=== PATIENT | male | born 1980 | race Caucasian/White ===

== ENCOUNTER 2017-03-23 11:16 | Emergency (ER) | payer BC, OTHER ==
[2017-03-23 11:38] VITALS: BP 124/84
--- NOTE | 2017-03-23 11:45 | EDM.PDOC ---
ED HPI GENERAL MEDICAL PROBLEM - General Chief Complaint: Eye Problems Stated Complaint: LOOSES SIGHT Time Seen by Provider: 03/23/17 11:44 - History of Present Illness INITIAL COMMENTS - FREE TEXT/NARRATIVE: 36-year-old male presents emergency room with vision changes. Patient had a seizure a couple of weeks ago after this he's noticed increased vision changes he has up to 1 episode today where he notices his vision get blurry on the periphery and then moving towards a central vision. This happens in both eyes it last no more than 30 seconds and then spontaneously resolves it might be associated with increased head pressure and he states at times lights seem a little brighter than they should. Patient had a similar episode couple years ago this was worked up but the cause of these was not determined. 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 - Related Data Allergies Allergy/AdvReac Type Severity Reaction Status Date / Time cephalexin monohydrate Allergy Cannot Verified 08/11/15 11:55 [From Keflex] Remember Cephalosporins Allergy Cannot Verified 08/11/15 11:55 Remember erythromycin base Allergy Cannot Verified 08/11/15 11:55 Remember Home Meds: Home Meds Divalproex Sodium [Depakote ER] 1,500 mg PO DAILY 08/11/15 [History] FLUoxetine [PROzac] 20 mg PO DAILY 08/11/15 [History] Past Medical History Neurological History: Reports: Seizure Psychiatric History: Reports: Anxiety, Depression - Past Surgical History Musculoskeletal Surgical History: Reports: Shoulder Surgery Other Musculoskeletal Surgeries/Procedures:: left x 2 Social & Family History - Tobacco Use Smoking Status *Q: Current Every Day Smoker Years of Tobacco use: 10 Packs/Tins Daily: 1 Used Tobacco, but Quit: No Second Hand Smoke Exposure: No - Caffeine Use Caffeine Use: Reports: Coffee - Recreational Drug Use Recreational Drug Use: No ED ROS GENERAL - Review of Systems Review Of Systems: See Below Constitutional: Reports: No Symptoms. Denies: Fever, Chills HEENT: Reports: Vision Change. Denies: Eye Pain Respiratory: Reports: No Symptoms Cardiovascular: Reports: No Symptoms GI/Abdominal: Reports: No Symptoms : Reports: No Symptoms Musculoskeletal: Reports: No Symptoms Skin: Reports: No Symptoms Neurological: Reports: Headache (Doesn't have headaches he notices some pressure especially when his eyes get blurry), Seizure (History of present illness). Denies: Confusion, Dizziness, Numbness, Syncope, Tremors, Trouble Speaking, Difficulty Walking, Weakness Psychiatric: Reports: No Symptoms ED EXAM GENERAL W FULL EYE - Physical Exam Exam: See Below Exam Limited By: No Limitations General Appearance: Alert, No Apparent Distress Eye Exam: Bilateral Eye: EOMI, Normal Inspection, PERRL Visual Acuity (R) 20/: 25 (He missed 2 on the 20/25 line) Visual Acuity (L) 20/: 25 (He missed 2 on the 20/25 line) Eyelids: Bilateral: Normal Appearance Conjunctiva & Sclera: Bilateral: Normal Appearance Cornea Exam: Bilateral: Normal Appearance Pupils: Normal Accommodation Ears: Normal External Exam, Normal Canal, Hearing Grossly Normal, Normal TMs, Other (Right tympanic membrane not visualized left is normal right not visualized because of cerumen) Nose: Normal Inspection, Normal Mucosa Throat/Mouth: Normal Inspection, Normal Lips, Normal Teeth, Normal Gums, Normal Oropharynx, Normal Voice, No Airway Compromise Head: Atraumatic, Normocephalic Neck: Normal Inspection, Supple, Non-Tender, Full Range of Motion Respiratory/Chest: No Respiratory Distress, Lungs Clear, Normal Breath Sounds Cardiovascular: Regular Rate, Rhythm, No Edema, No Murmur Extremities: Normal Inspection, Normal Range of Motion, No Pedal Edema, Other Neurological: Alert, Oriented, CN II-XII Intact, Normal Cognition, Normal Reflexes, No Motor/Sensory Deficits Psychiatric: Normal Affect, Normal Mood Course - Vital Signs Last Recorded V/S: Last Vital Signs Temp 37.0 C 03/23/17 11:36 Pulse 94 03/23/17 11:36 Resp 20 03/23/17 11:36 BP 124/84 03/23/17 11:36 Pulse Ox 96 03/23/17 11:36 - Orders/Labs/Meds Labs: Laboratory Tests 03/23/17 Range/Units 12:25 Sodium 140 (136-145) mEq/L Potassium 3.8 (3.5-5.1) mEq/L Chloride 104 (98-107) mEq/L Carbon Dioxide 26 (21-32) mEq/L Anion Gap 13.8 (5-15) BUN 14 (7-18) mg/dL Creatinine 1.1 (0.7-1.3) mg/dL Est Cr Clr Drug Dosing 87.63 mL/min Estimated GFR (MDRD) > 60 (>60) mL/min BUN/Creatinine Ratio 12.7 L (14-18) Glucose 94 (74-106) mg/dL Calcium 9.0 (8.5-10.1) mg/dL Total Bilirubin 0.3 (0.2-1.0) mg/dL AST 16 (15-37) U/L ALT 32 (16-63) U/L Alkaline Phosphatase 77 (46-116) U/L Total Protein 7.2 (6.4-8.2) g/dl Albumin 3.5 (3.4-5.0) g/dl Globulin 3.7 gm/dL Albumin/Globulin Ratio 1.0 (1-2) Valproic Acid 60.6 (50.0-100.0) ug/mL - Re-Assessments/Exams Free Text/Narrative Re-Assessment/Exam: 03/23/17 12:25 I have ordered a Depakote level and chemistries to make sure he doesn't have any liver abnormalities. Case discussed with Dr. Pinzon neurologist at [facility] who is on-call for the patient's regular neurologist. He agrees recommends outpatient follow-up no imaging at this point. 03/23/17 13:44 Valproic acid level is 60 chemistries show no transaminase elevation. He should follow-up with his regular provider and neurology in the near future. Departure - Departure Time of Disposition: 13:48 Disposition: Home, Self-Care 01 Clinical Impression: Vision changes - Discharge Information Referrals: Emir Khalil MD [Primary Care Provider] - Forms: ED Department Discharge Additional Instructions: Return to the emergency room with any questions problems worsening symptoms. Follow-up with your regular provider this next week. Follow-up with your neurologist as soon as they can get you in. Continue your current medications as you have been doing.
== END 2017-03-23 13:57 | disposition home or self-care (01) ==
LOC: JD.ED 11:16
DX: H53.8 Other visual disturbances (principal); F17.210 Nicotine dependence, cigarettes, uncomplicated; Z88.1 Allergy status to other antibiotic agents; Z79.899 Other long term (current) drug therapy
CPT/HCPCS: 36415; 80053; 80164; 99283; 99284

== ENCOUNTER 2018-09-30 09:29 | Emergency (ER) | payer BC ==
[2018-09-30 09:47] VITALS: BP 132/91
--- NOTE | 2018-09-30 10:09 | EDM.PDOC ---
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 He is prescribed Depakote 1500 mg po QHS per his Neurologist in [place]. He states that he believes that he had a seizure this morning, as well as on this past 09/27/2018Friday, 09/28/2018, and 09/29/2018. He states that he believes this because he has woken with cramps in both of his calves, which is what he typically feels when he has a seizure. He has not been incontinent of bowel or bladder, and he has not bitten his lip or tongue, although he states that he never does when he has a seizure. He states that he was found unresponsive by a friend yesterday, who called 911. He states that he was woken up by EMS, they evaluated him, and did not find any problems, but they recommended that he seek medical evaluation. He states that he went to the walk-in clinic, where blood work, including a Depakote level, was obtained, however, they have not yet contacted him with the Depakote level. Today, the patient states that he was unable to be reached, therefore his mother called his boss, who sent a coworker to check on the patient, again finding him unresponsive. The coworker called 911, and the patient was brought here by EMS. He states that he typically has about 3 seizures per year, but that this year he has had an increased frequency, with perhaps 9 seizures so far this year. The patient states that he has not missed any doses of Depakote recently, and he denies recent sleep deprivation or other unusual stresses or illnesses. He states that he drinks alcohol on occasion, and rarely to excess, but none this week. The patient does not recall when the last imaging study of his head was performed. The patient states that he was on Prozac and an antianxiety medication, but that these were discontinued about a year ago. Depakote is his only medicine, presently. The patient's PCP is Dr. Emir Khalil. His neurologist is Dr. Christie Jewell. The patient has an appointment to see Dr. Jewell on 10/28/2018. Leg Pain Score (Numeric/FACES): 4 - Related Data Allergies Allergy/AdvReac Type Severity Reaction Status Date / Time cephalexin monohydrate Allergy Cannot Verified 09/30/18 09:37 [From Keflex] Remember Cephalosporins Allergy Cannot Verified 09/30/18 09:37 Remember erythromycin base Allergy Cannot Verified 09/30/18 09:37 Remember Home Meds: Home Meds Divalproex Sodium [Depakote ER] 1,500 mg PO DAILY 08/11/15 [History] Past Medical History Neurological History: Reports: Seizure Psychiatric History: Reports: Anxiety (untreated), Depression (untreated) Endocrine/Metabolic History: Reports: Obesity/BMI 30+ - Past Surgical History Musculoskeletal Surgical History: Reports: Shoulder Surgery (left, arthroscopic x 1, open x 1) Social & Family History - Family History Family Medical History: Noncontributory Neurological: Reports: Seizure - Tobacco Use Smoking Status *Q: Current Every Day Smoker Tobacco Use Within Last Twelve Months: Smokeless Tobacco (Chews 1/2 can/day) Years of Tobacco use: 16 Packs/Tins Daily: 0.3 - Caffeine Use Caffeine Use: Reports: Coffee - Alcohol Use Alcohol Use History: Yes Alcohol Use Frequency: Socially (rarely to excess) - Recreational Drug Use Recreational Drug Use: No - Living Situation & Occupation Living situation: Reports: , with Family (Daughter + sometimes son) Occupation: Employed ([employer]) ED ROS GENERAL - Review of Systems Review Of Systems: ROS reveals no pertinent complaints other than HPI. - Physical Exam Exam: See Below Exam Limited By: No Limitations General Appearance: Alert, WD/WN, No Apparent Distress Eye Exam: Bilateral Eye: EOMI, Normal Inspection Ears: Normal External Exam, Hearing Grossly Normal Nose: Normal Inspection Throat/Mouth: Normal Inspection, Normal Lips, Normal Teeth, Normal Gums, Normal Oropharynx (no visible injury), Normal Voice, No Airway Compromise Head Exam: Atraumatic, Normocephalic Neck: Normal Inspection, Supple, Non-Tender, Full Range of Motion Respiratory/Chest: No Respiratory Distress, Lungs Clear, Normal Breath Sounds, No Accessory Muscle Use Cardiovascular: Normal Peripheral Pulses, Regular Rate, Rhythm, No Edema, No Gallop, No JVD, No Murmur, No Rub GI/Abdominal: Normal Bowel Sounds, Soft, Non-Tender, No Organomegaly, No Distention, No Abnormal Bruit, No Mass, Other (Obese) (Male) Exam: Deferred Rectal (Males) Exam: Deferred Neuro Exam (Abbreviated): Alert, Oriented, CN II-XII Intact, Normal Cognition, No Motor/Sensory Deficits Back Exam: Normal Inspection, Full Range of Motion, NT Extremities: Normal Inspection, Normal Range of Motion, No Pedal Edema, Normal Capillary Refill Psychiatric: Normal Affect Skin Exam: Warm, Dry, Intact, Normal Color, No Rash Course - Vital Signs Last Recorded V/S: Last Vital Signs Temp 36.6 C 09/30/18 09:45 Pulse 84 09/30/18 09:45 Resp 16 09/30/18 09:45 BP 132/91 H 09/30/18 09:45 Pulse Ox 97 09/30/18 09:45 - Orders/Labs/Meds Labs: Laboratory Tests 09/30/18 09/30/18 Range/Units 10:25 10:25 WBC 6.61 (4.23-9.07) K/mm3 RBC 5.96 (4.63-6.08) M/mm3 Hgb 16.3 (13.7-17.5) gm/L Hct 46.1 (40.1-51.0) % MCV 77.3 L (79.0-92.2) fl MCH 27.3 (25.7-32.2) pg MCHC 35.4 (32.2-35.5) g/dl RDW Std Deviation 38.7 (35.1-43.9) fL Plt Count 238 (163-337) K/mm3 MPV 9.6 (9.4-12.3) fl Neutrophils % (Manual) 50 (40-60) % Band Neutrophils % 0 (0-10) % Lymphocytes % (Manual) 41 H (20-40) % Atypical Lymphs % 0 % Monocytes % (Manual) 7 (2-10) % Eosinophils % (Manual) 2 (0.8-7.0) % Basophils % (Manual) 0 L (0.2-1.2) Platelet Estimate Adequate RBC Morph Comment Normal Sodium 140 (136-145) mEq/L Potassium 3.9 (3.5-5.1) mEq/L Chloride 104 (98-107) mEq/L Carbon Dioxide 28 (21-32) mEq/L Anion Gap 11.9 (5-15) BUN 13 (7-18) mg/dL Creatinine 1.1 (0.7-1.3) mg/dL Est Cr Clr Drug Dosing 86.80 mL/min Estimated GFR (MDRD) > 60 (>60) mL/min BUN/Creatinine Ratio 11.8 L (14-18) Glucose 114 H (74-106) mg/dL Calcium 8.8 (8.5-10.1) mg/dL Phosphorus 3.5 (2.6-4.7) mg/dL Magnesium 1.9 (1.8-2.4) mg/dl Total Bilirubin 0.3 (0.2-1.0) mg/dL AST 21 (15-37) U/L ALT 37 (16-63) U/L Alkaline Phosphatase 70 (46-116) U/L Creatine Kinase 71 (39-308) U/L Total Protein 6.9 (6.4-8.2) g/dl Albumin 3.6 (3.4-5.0) g/dl Globulin 3.3 gm/dL Albumin/Globulin Ratio 1.1 (1-2) Valproic Acid 27.3 L (50.0-100.0) ug/mL Meds: Medications Discontinued Medications Generic Name Dose Route Start Last Admin Trade Name Freq PRN Reason Stop Dose Admin Valproic Acid 500 mg/ Sodium 55 mls @ 55 mls/hr 09/30/18 13:00 09/30/18 12:51 Chloride IV 09/30/18 13:59 55 mls/hr ONETIME ONE Administration Valproic Acid 500 mg 09/30/18 12:28 Depacon IV 09/30/18 12:29 ONETIME STA - Re-Assessments/Exams Free Text/Narrative Re-Assessment/Exam: 09/30/18 10:06 Case discussed with Mignon Read NP, the provider that the patient saw yesterday , at 10:00. She stated that the valproic acid level that was drawn yesterday has not yet resulted. I have ordered blood work, that includes a magnesium level and phosphate level, to make sure that there are no significant electrolyte abnormalities that might explain the increase in the patient's seizures. I also ordered a CPK level to help confirm that the patient has been suffering from seizures. I ordered a valproic acid level, since the one drawn yesterday has not resulted, and I ordered a CT scan of the head, since the patient does not recall when the last imaging study of his head was performed. Once I have these results, I will see if I can contact the patient's Neurologist. 09/30/18 11:18 CT of the head without contrast is read by Dr. Alarcon as: 1. Nothing acute is identified on noncontrast head CT study. 09/30/18 12:10 The patient's CBC is unremarkable. The patient's CMP is remarkable for blood glucose slightly elevated at 114, but is otherwise unremarkable. The patient's magnesium level is normal. The patient's phosphate level is normal. The patient's CPK is not elevated. The patient's valproic acid level is subtherapeutic at 27.3 (50-100). 09/30/18 12:[address] Pinzon, Neurologist stationary fireman for Dr. Jewell, at 12:20. He recommended that we give the patient 500 mg of IV Depacon here in the ED, then have the patient change his home dose of Depakote to 1000 mg po BID, starting tonight. He ingested a repeat Depakote level in 2 weeks, however, he feels that it can wait until the patient's already scheduled appointment with Dr. Jewell on 10/28/2018. In the meantime, the patient is not to drive. 09/30/18 12:32 The Depacon has been ordered. I will discharge the patient home once he has finished infusing. The patient is agreeable with the above plan of care, and agrees not to drive. Departure - Departure Time of Disposition: 12:35 Disposition: Home, Self-Care 01 Condition: Good Clinical Impression: Epileptic seizures, Seizure secondary to subtherapeutic anticonvulsant medication - Discharge Information *PRESCRIPTION DRUG MONITORING PROGRAM REVIEWED*: Not Applicable *COPY OF PRESCRIPTION DRUG MONITORING REPORT IN PATIENT SURJIT: Not Applicable Instructions: Epilepsy, [id number], Seizure, Adult, [id number] Referrals: Christie Jewell MD [Primary Care Provider] - Emir Khalil MD [Physician] - Forms: ED Department Discharge Additional Instructions: You were seen in the emergency room after (likely) suffering from seizures every day this week. Workup in the ER included blood work and a CT scan of your head without contrast. Your valproic acid level was found to be subtherapeutic at 27.3. The therapeutic range is 50-100. The remainder of your workup, including the CT scan of your head, was unremarkable. Your case was discussed with the Neurologist Dr. Pinzon. You were given IV Depacon in the ER. Dr. Pinzon recommended that you increase your dose of Depakote to 1000 mg (2 tablets) every 12 hours, starting tonight. He emphasized that you are not to drive or operate heavy machinery. Follow-up with your Neurologist, Dr. Jewell, at your previously scheduled appointment on 10/28/2018. If any other problems, please do not hesitate to return to the ER.
--- NOTE | 2018-09-30 10:38 | CT ---
Head CT Technique: Multiple axial sections through the brain were obtained. Intravenous contrast was not utilized. Comparison: Prior head CT study of 08/11/15. Findings: Ventricles along with basal cisterns and sulci over the convexities are within normal limits for the patient's age. No abnormal parenchymal densities are seen. No evidence of intracranial hemorrhage. No midline shift or mass effect is seen. Bone window settings were reviewed which show the visualized sinuses to appear clear. No acute calvarial abnormality is appreciated. Impression: 1. Nothing acute is identified on noncontrast head CT study. Diagnostic code #1
[2018-09-30] MEDS ORDERED: Valproate Sodium 500 MG/5 ML SDV IV STA (12:28)
== END 2018-09-30 14:00 | disposition home or self-care (01) ==
LOC: JD.ED 09:29
DX: G40.409 Other generalized epilepsy and epileptic syndromes, not intractable, without status epilepticus (principal); F41.9 Anxiety disorder, unspecified; F32.9 Major depressive disorder, single episode, unspecified; F17.210 Nicotine dependence, cigarettes, uncomplicated; Z91.14 Patient's other noncompliance with medication regimen; Z79.899 Other long term (current) drug therapy; Z88.1 Allergy status to other antibiotic agents
CPT/HCPCS: 36415; 70450; 80053; 80164; 82550; 83735; 84100; 85007; 85027; 96365; 99284; J7050; J3490

== ENCOUNTER 2019-05-06 08:33 | Emergency (ER) | payer BC ==
[2019-05-06 08:47] VITALS: BP 132/89; PULSE 83
--- NOTE | 2019-05-06 09:51 | EDM.PDOC ---
ED HPI GENERAL MEDICAL PROBLEM - General Chief Complaint: Neurological Problem Stated Complaint: SEIZURES Time Seen by Provider: 05/06/19 08:41 Source of Information: Reports: Patient, Family History Limitations: Reports: No Limitations - History of Present Illness INITIAL COMMENTS - FREE TEXT/NARRATIVE: The patient presents with seizures and a headache. He has a history of seizures since he was 13. He had a head injury at that time. He is on valproic acid 2,000mg daily. He has been having a headache for a few days. He and his mother are concerned he is having seizures at night. He has been hard to wake up in the morning. His mother will call him and he has been out of it. He is very tired in the morning and has muscle aches. These are normal symptoms he will have after a seizure. His headache comes and goes. He has no fever, chills, cough, congestion, runny nose, chest pain, shortness of breath, abdominal pain, nausea or vomiting. He has no numbness or weakness. He normally will have a generalized tonic clonic seizure. Onset: Gradual Location: Reports: Head Quality: Reports: Ache Severity: Moderate Improves with: Reports: None Worsens with: Reports: None Associated Symptoms: Reports: Headaches. Denies: Chest Pain, Cough, Fever/ Chills, Nausea/Vomiting, Shortness of Breath - Related Data Allergies Allergy/AdvReac Type Severity Reaction Status Date / Time cephalexin monohydrate Allergy Cannot Verified 09/30/18 09:37 [From Keflex] Remember Cephalosporins Allergy Cannot Verified 09/30/18 09:37 Remember erythromycin base Allergy Cannot Verified 09/30/18 09:37 Remember Penicillins Allergy Rash Verified 05/06/19 08:39 Home Meds: Home Meds Divalproex Sodium [Depakote ER] 2,000 mg PO DAILY 08/11/15 [History] Divalproex Sodium [Depakote ER] 2,500 mg PO DAILY #150 tab.sr.24h 05/06/19 [Rx] Past Medical History - Past Health History Medical/Surgical History: Denies Medical/Surgical History HEENT History: Reports: None Cardiovascular History: Reports: None Respiratory History: Reports: None Gastrointestinal History: Reports: None Genitourinary History: Reports: None Other Musculoskeletal History: states pain in calves normal for after seizures for him Neurological History: Reports: Seizure Psychiatric History: Reports: Anxiety, Depression Endocrine/Metabolic History: Reports: Obesity/BMI 30+ Hematologic History: Reports: None Immunologic History: Reports: None Oncologic (Cancer) History: Reports: None Dermatologic History: Reports: None - Infectious Disease History Infectious Disease History: Reports: None - Past Surgical History Head Surgeries/Procedures: Reports: None HEENT Surgical History: Reports: Oral Surgery Musculoskeletal Surgical History: Reports: Shoulder Surgery Social & Family History - Family History Family Medical History: Noncontributory Neurological: Reports: Seizure - Tobacco Use Smoking Status *Q: Current Every Day Smoker Years of Tobacco use: 10 Packs/Tins Daily: 0.2 - Caffeine Use Caffeine Use: Reports: Coffee - Living Situation & Occupation Living situation: Reports: , with Family (Daughter + sometimes son) Occupation: Employed ([email or web address]) ED [facility] - Review of Systems Review Of Systems: See Below Constitutional: Reports: No Symptoms HEENT: Reports: No Symptoms Respiratory: Reports: No Symptoms Cardiovascular: Reports: No Symptoms Endocrine: Reports: No Symptoms GI/Abdominal: Reports: No Symptoms : Reports: No Symptoms Musculoskeletal: Reports: No Symptoms Skin: Reports: No Symptoms Neurological: Reports: Headache, Seizure - Physical Exam Exam: See Below Exam Limited By: No Limitations General Appearance: Alert, No Apparent Distress Ears: Normal External Exam Nose: Normal Inspection Head Exam: Atraumatic, Normocephalic Neck: Normal Inspection Respiratory/Chest: No Respiratory Distress, Lungs Clear, Normal Breath Sounds Cardiovascular: Regular Rate, Rhythm, No Edema, No Murmur GI/Abdominal: Soft, Non-Tender, No Organomegaly, No Mass Neuro Exam (Abbreviated): Alert, Oriented, No Motor/Sensory Deficits Course - Vital Signs Last Recorded V/S: Last Vital Signs Temp 98.5 F 05/06/19 08:42 Pulse 83 05/06/19 08:42 Resp 16 05/06/19 08:42 BP 132/89 05/06/19 08:42 Pulse Ox 100 05/06/19 08:42 - Orders/Labs/Meds Orders: Active Orders 24 hr Category Date Time Status Cardiac Monitoring [RC] . DIRECTED Care 05/06/19 08:54 Active Labs: Laboratory Tests 05/06/19 05/06/19 05/06/19 Range/Units 09:02 09:02 09:02 WBC 8.83 (4.23-9.07) K/mm3 RBC 6.25 H (4.63-6.08) M/mm3 Hgb 16.9 (13.7-17.5) gm/dl Hct 47.8 (40.1-51.0) % MCV 76.5 L (79.0-92.2) fl MCH 27.0 (25.7-32.2) pg MCHC 35.4 (32.2-35.5) g/dl RDW Std Deviation 38.2 (35.1-43.9) fL Plt Count 274 (163-337) K/mm3 MPV 9.6 (9.4-12.3) fl Neut % (Auto) 48.4 (34.0-67.9) % Lymph % (Auto) 38.3 (21.8-53.1) % [place] % (Auto) 9.6 (5.3-12.2) % Eos % (Auto) 2.6 (0.8-7.0) Baso % (Auto) 0.8 (0.1-1.2) % Neut # (Auto) 4.27 (1.78-5.38) K/mm3 Lymph # (Auto) 3.38 (1.32-3.57) K/mm3 [place] # (Auto) 0.85 H (0.30-0.82) K/mm3 Eos # (Auto) 0.23 (0.04-0.54) K/mm3 Baso # (Auto) 0.07 (0.01-0.08) K/mm3 Manual Slide Review Abnormal smear Sodium 140 (136-145) mEq/L Potassium 3.7 (3.5-5.1) mEq/L Chloride 103 (98-107) mEq/L Carbon Dioxide 27 (21-32) mEq/L Anion Gap 13.7 (5-15) BUN 14 (7-18) mg/dL Creatinine 1.1 (0.7-1.3) mg/dL Est Cr Clr Drug Dosing 82.97 mL/min Estimated GFR (MDRD) > 60 (>60) mL/min BUN/Creatinine Ratio 12.7 L (14-18) Glucose 116 H (74-106) mg/dL Calcium 8.7 (8.5-10.1) mg/dL Magnesium 2.0 (1.8-2.4) mg/dl Total Bilirubin 0.3 (0.2-1.0) mg/dL AST 19 (15-37) U/L ALT 51 (16-63) U/L Alkaline Phosphatase 65 (46-116) U/L Total Protein 7.2 (6.4-8.2) g/dl Albumin 3.5 (3.4-5.0) g/dl Globulin 3.7 gm/dL Albumin/Globulin Ratio 1.0 (1-2) Valproic Acid 80.4 (50.0-100.0) ug/mL - Re-Assessments/Exams Free Text/Narrative Re-Assessment/Exam: 05/06/19 09:52 I have ordered a CT of his head and labs. His CBC and CMP look good. I am waiting for the CT results and valproic acid level. 05/06/19 10:[address] shows nothing acute. His valproic acid is within therapeutic range of 80.4. 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 He also felt a sleep study would be a good idea. Departure - Departure Time of Disposition: 11:00 Disposition: Home, Self-Care 01 Condition: Good Clinical Impression: Seizure - Discharge Information *PRESCRIPTION DRUG MONITORING PROGRAM REVIEWED*: Not Applicable *COPY OF PRESCRIPTION DRUG MONITORING REPORT IN PATIENT SURJIT: Not Applicable Prescriptions: Divalproex Sodium [Depakote ER] 2,500 mg PO DAILY #150 tab.sr.24h Referrals: Emir Khalil MD [Primary Care Provider] - Forms: ED Department Discharge Additional Instructions: Take Depakote ER 2,500mg at night. Have your level rechecked in 4 weeks. Follow up with Dr Beebe to discuss getting a sleep study. Try to get plenty of rest. Avoid alcohol and no driving until cleared by your neurologist or doctor. Please return if you are worse. Sepsis Event Note - Evaluation Sepsis Screening Result: No Definite Risk - Focused Exam Vital Signs: Vital Signs Temp Pulse Resp BP Pulse Ox 05/06/19 08:42 98.5 F 83 16 132/89 100 Date Exam was Performed: 05/06/19 Time Exam was Performed: 10:54 - My Orders Last 24 Hours: My Active Orders 05/06/19 08:54 Cardiac Monitoring [RC] . DIRECTED - Assessment/Plan Last 24 Hours: My Active Orders 05/06/19 08:54 Cardiac Monitoring [RC] . DIRECTED
--- NOTE | 2019-05-06 09:57 | CT ---
Head CT Technique: Multiple axial sections through the brain were obtained. Intravenous contrast was not utilized. Comparison: Prior head CT study of 09/30/18. Findings: Ventricles along with basal cisterns and sulci over the convexities are within normal limits for the patient's age. No abnormal parenchymal densities are seen. No evidence of intracranial hemorrhage. No midline shift or mass effect is seen. Bone window settings were reviewed. Visualized mastoid sinuses showed nothing acute. Visualized paranasal sinuses show nothing acute. No acute calvarial abnormality is appreciated. Impression: 1. Nothing acute is appreciated on noncontrast head CT exam. 2. No significant change is seen from prior head CT exam. Diagnostic code #1 This report was dictated in [place] Standard Time
== END 2019-05-06 11:11 | disposition home or self-care (01) ==
LOC: JD.ED 08:33
DX: R56.9 Unspecified convulsions (principal); F17.210 Nicotine dependence, cigarettes, uncomplicated; Z88.1 Allergy status to other antibiotic agents; Z88.0 Allergy status to penicillin
CPT/HCPCS: 36415; 70450; 70450-26; 80053; 80164; 83735; 85025; 99283; 99285-25